=== PATIENT | female | born 1985 | race Caucasian/White ===

== ENCOUNTER → 2023-02-18 09:06 | Outpatient (CLI) | payer BC, SELFPAY ==
[2023-02-18 10:01] LABS: Add Manual Diff / Slide Review NO; Basophils Absolute Auto 100 /uL (0-100); Basophils Percent Auto 1.2 % (0-2); Eosinophils Absolute Auto 100 /uL (0-450); Hemoglobin 12.7 g/dL (12.0-16.0); Lymphocytes Absolute Auto 1700 /uL (1100-4500); Lymphocytes Percent Auto 40.4 % (25-40); Mean Corpuscular HGB Conc 33.6 % (30-36); Mean Corpuscular Hemoglobin 27.2 PG (26-34); Mean Corpuscular Volume 81.1 fL (80-100); Monocytes Absolute Auto 400 /uL (0-900); Monocytes Percent Auto 8.8 % (3-14); Neutrophils Absolute Auto 2000 /uL (1500-7000); Neutrophils Percent Auto 47.6 % (50-75); Platelet Count 235 X10^3/uL (150-400); Red Blood Cell Count 4.68 X10^6/uL (4.0-5.2); Red Cell Distribution Width 14.8 % (11.6-14.8); White Blood Cell Count 4.2 X10^3/uL (4.5-11.0)
[2023-02-18 10:56] LABS: HCG Quantitative /Beta subunit < 2.4 mIU/mL; Prolactin 6.8 ng/mL (3.0-18.6)
[2023-02-18 10:58] LABS: Follicle Stimulating Hormone 4.05 mIU/mL; Luteinizing Hormone 4.18 mIU/mL
[2023-02-18 11:09] LABS: Thyroid Stimulating Hormone 2.35 uIU/mL (0.47-4.68)
[2023-02-18 11:14] LABS: Estradiol, Total 15.4 pg/mL
[2023-02-19 07:07] LABS: x Labcorp Estim. Avg Glu (eAG) 120 mg/dL (.); x Labcorp Hemoglobin A1c 5.8 % (4.8-5.6)
[2023-02-23 18:19] LABS: Anti Mullerian Hormone 2.94 ng/mL (.)
[2023-02-24 06:09] LABS: Percent Free Testosterone 1.06 % (0.50-2.80); Testosterone Free 0.11 ng/dL (0.10-0.85); Testosterone Total 10.2 ng/dL (10.0-55.0)
== END ==
PROVIDERS: Referring Provider Obstetrics & Gynecology; Visit Provider Obstetrics & Gynecology
DX: N92.6 Irregular menstruation, unspecified (principal)
CPT/HCPCS: 36415; 82397; 82670; 83001; 83002; 83036; 83498; 84146; 84402; 84403; 84443; 84702; 85025